=== PATIENT | female | born 1935 | race Caucasian/White ===

== ENCOUNTER 2016-11-11 17:45 | Emergency (ER) | payer MEDICARE ==
--- NOTE | 2016-11-11 18:52 | Emergency Department Report ---
ED General Adult HPI - General Chief complaint: Extremity Injury, Upper Stated complaint: FALL,POSSIBLE AMS Source: family, EMS (ems notes not available at time of chart dictation), RN notes reviewed Mode of arrival: Stretcher Limitations: Altered Mental Status (patient is demented. Patient is a poor historian) - History of Present Illness Initial comments: This is an 81-year-old female. She is previously unknown to me. She has a past medical history of hypertension, hypothyroidism, GERD/reflux, dementia, traumatic intracranial hemorrhage. History is obtained by speaking to her son, who is also a physician. Her son contacted me, and reported that the patient had a mechanical fall yesterday, and further reported that the patient cognitively seen to be at 90%. He reports that today the patient's cognition seems to be somewhat worse, although there are no exacerbating or relieving factors. Me, the patient denies headache, neck pain, chest pain, abdominal pain and shortness of breath. She denies irritative obstructive urinary symptoms, she complains of left-sided shoulder pain, patient's family endorses that the patient did complain of hip pain at some point. The patient is demented, and is unable to explain exacerbating or relieving factors. She is pleasant, cooperative, calm, and is requesting a back massage. -: unknown Location: left, upper extremity Improves with: other (per hpi) Worsens with: other (per hpi) Associated Symptoms: confusion (demented) - Related Data Previous Rx's Medication Instructions Recorded Last Taken Type Magnesium Oxide [Magnesium] 500 mg PO QDAY #14 capsule 11/11/16 Unknown Rx Potassium Chloride 20 meq PO BID #28 packet 11/11/16 Unknown Rx Allergies Allergy/AdvReac Type Severity Reaction Status Date / Time morphine Allergy Unknown Verified 11/11/16 18:52 Penicillins Allergy Unknown Verified 11/11/16 18:51 streptomycin Allergy Unknown Verified 11/11/16 18:50 ED Review of Systems ROS: Stated complaint: FALL,POSSIBLE AMS Other details as noted in HPI Comment: Unobtainable due to pts medical conditions Constitutional: denies: fever Eyes: denies: eye discharge ENT: denies: epistaxis Respiratory: denies: cough Cardiovascular: denies: chest pain Gastrointestinal: denies: abdominal pain Musculoskeletal: arthralgia, myalgia Neurological: confusion ED Past Medical Hx - Past Medical History Previous Medical History?: Yes Hx Hypertension: Yes Hx Dementia: Yes Additional medical history: traumatic hemorrhage of the cerebrum, repeated falls , rhabdomyolysis, right wrist sprain, osteoarthritis, GERD, A Fib - Surgical History Additional Surgical History: bilateral knee surgery - Social History Smoking Status: Never Smoker Substance Use Type: None - Medications Home Medications: Home Medications Medication Instructions Recorded Confirmed Last Taken Type Magnesium Oxide [Magnesium] 500 mg PO QDAY #14 capsule 11/11/16 Unknown Rx Potassium Chloride 20 meq PO BID #28 packet 11/11/16 Unknown Rx ED Physical Exam - General Limitations: Other (demented poor historian) General appearance: alert, in no apparent distress - Head Head exam: Present: atraumatic, normocephalic - Eye Eye exam: Present: normal appearance, PERRL, EOMI. Absent: nystagmus (b/l arcus senilis) - ENT ENT exam: Present: normal exam, normal orophraynx, mucous membranes moist, normal external ear exam - Neck Neck exam: Present: normal inspection, full ROM. Absent: tenderness, meningismus - Respiratory Respiratory exam: Present: normal lung sounds bilaterally. Absent: respiratory distress, wheezes, rales, rhonchi, stridor, chest wall tenderness, accessory muscle use, decreased breath sounds, prolonged expiratory - Cardiovascular Cardiovascular Exam: Present: regular rate, normal rhythm, normal heart sounds. Absent: bradycardia, tachycardia, irregular rhythm, systolic murmur, diastolic murmur, rubs, gallop - GI/Abdominal GI/Abdominal exam: Present: soft, normal bowel sounds. Absent: distended, tenderness, guarding, rebound, rigid, pulsatile mass - Extremities Exam Extremities exam: Present: normal inspection, full ROM, normal capillary refill , other (2+ pulses are noted in the bilateral upper and lower extremities. The compartments are soft. The pelvis is stable. Left shoulder is tender. 5 out of 5 strength in bilateral upper and lower extremities). Absent: pedal edema, joint swelling, calf tenderness - Back Exam Back exam: Present: normal inspection, full ROM. Absent: tenderness, CVA tenderness (R), paraspinal tenderness, vertebral tenderness - Neurological Exam Neurological exam: Present: alert, other (Extraocular movements intact. Tongue midline. No facial droop. Facial sensation intact to light touch in the V1, V2 , V3 distribution bilaterally. 5 and 5 strength in 4 extremities.. Sensation is intact to light touch in 4 extremities.). Absent: motor sensory deficit - Skin Skin exam: Present: warm, dry, intact, normal color. Absent: rash ED Course Vital Signs 11/11/16 11/11/16 11/11/16 18:27 19:13 19:15 Temperature 97.5 F L 98 F Pulse Rate 80 74 Respiratory 12 18 20 Rate Blood Pressure 147/52 Blood Pressure 117/51 [Left] O2 Sat by Pulse 99 99 Oximetry 11/11/16 20:51 Temperature 98 F Pulse Rate 100 H Respiratory 18 Rate Blood Pressure Blood Pressure 119/59 [Left] O2 Sat by Pulse 97 Oximetry - Reevaluation(s) Reevaluation #1: 11/11/16 19:19 Differential diagnosis: Intracranial injury, cervical spine injury, fracture, dislocation, arthritis, pneumonia, DJD, uti electrolyte derangement Assessment and plan: 81-year-old female who is pleasantly demented, with probable concussion. She is afebrile with reassuring vital signs. Noncontrast CT scan of the brain and cervical spine negative for acute disease. Laboratory studies, urinalysis, x-ray of the shoulder and pelvis pending. Reevaluation #2: 11/11/16 21:[address] scan of the brain and cervical spine negative for traumatic disease. X-ray of the chest negative for pneumonia. Left shoulder x-ray corroborates this. Hip x-ray negative for fracture and dislocation. Urinalysis negative. Laboratory studies demonstrate hypokalemia, hypomagnesemia. The patient will be started on potassium, magnesium, and calcium supplementation. She can follow-up with her outpatient primary care doctor for these further. Vital signs have remained stable. Left upper extremity will be placed in a sling. These findings and care were discussed with the patient's family and her son who lives in [place], who reports that he is a physician. They verbalized understanding, and the patient will be discharged at this time. 11/11/16 21:38 Reevaluation #3: 11/12/16 01:13 bilateral shoulder x-rays negative for fracture/dislocation. DJD /arthritis noted in the left-sided x-ray. ED Medical Decision Making - Lab Data Result diagrams: 11/11/16 19:12 11/11/16 19:12 Vital Signs (72 hours) 11/11/16 11/11/16 11/11/16 18:27 19:13 19:15 Temperature 97.5 F L 98 F Pulse Rate 80 74 Respiratory 12 18 20 Rate Blood Pressure 147/52 Blood Pressure 117/51 [Left] O2 Sat by Pulse 99 99 Oximetry Critical care attestation.: If time is entered above; I have spent that time in minutes in the direct care of this critically ill patient, excluding procedure time. ED Disposition Clinical Impression: Hypokalemia, Hypomagnesemia, Left shoulder pain Disposition: DC/TX-70 ANOTHER TYPE [facility] Is pt being admited?: No Does the pt Need Aspirin: No Condition: Good Additional Instructions: Take the potassium and magnesium supplementation as directed. Follow up with the primary care doctor within 7-10 days for repeat testing of potassium and magnesium levels. Keep the shoulder sling in place. Physical activities as tolerated. Follow-up with an orthopedic surgeon within the next week. Return to the ER right away with fevers, chills, chest pain, shortness of breath, intractable nausea or vomiting, confusion, inability to tolerate liquid feeds. Prescriptions: Magnesium Oxide [Magnesium] 500 mg PO QDAY #14 capsule Potassium Chloride 20 meq PO BID #28 packet Referrals: VIKTOR PATEL MD [Primary Care Provider] - 3-5 Days PRIMITIVO DAMICO MD [Staff Physician] - 3-5 Days
[2016-11-11 19:28] LABS: Basophils % (Auto) 0.7 % (0.0-1.8); Eosinophils % (Auto) 4.9 % (0.0-4.3); Hemoglobin 11.4 gm/dl (10.1-14.3); Mean Corpuscular HGB Conc 35 % (30-34); Mean Corpuscular Hemoglobin 32 pg (28-32); Mean Corpuscular Volume 94 fl (79-97); Platelet Count 274 K/mm3 (140-440); Red Blood Count 3.52 M/mm3 (3.65-5.03); Red Cell Distribution Width 14.3 % (13.2-15.2); White Blood Count 8.2 K/mm3 (4.5-11.0)
[2016-11-11 19:36] LABS: Mucus,Urine FEW /HPF
--- NOTE | 2016-11-11 19:36 | Cat Scan Report ---
FINAL REPORT EXAM: CT HEAD/BRAIN WO CON HISTORY: Trauma TECHNIQUE: Standard unenhanced CT of the head at 5.0 millimeter axial increments. PRIORS: None. FINDINGS: The ventricular system is normal in size and configuration. There is moderate cerebral atrophy and mild cerebellar atrophy. Low-density in the periventricular white matter bilaterally is consistent with small vessel ischemic changes. There is no evidence for mass lesion, mass effect, midline shift, acute intracranial hemorrhage, or acute ischemia/ infarction. No evidence for acute skull fracture is seen. No abnormality in the overlying scalp soft tissues is seen. Visualized paranasal sinuses demonstrates opacification of several right ethmoid air cells. IMPRESSION: No acute intracranial process noted. Cerebellum and cerebral atrophy and small vessel ischemic changes.
--- NOTE | 2016-11-11 19:42 | Cat Scan Report ---
FINAL REPORT EXAM: CT CERVICAL SPINE WO CON HISTORY: Trauma TECHNIQUE: Standard CT cervical spine obtained at 1.25 millimeter axial increments. Coronal and sagittal reconstruction was also performed. PRIORS: None. FINDINGS: The vertebral bodies are intact. There is no evidence for acute fracture. There is no evidence for paravertebral soft tissue swelling. There is severe degenerative disc narrowing from C3 through T1. Grade 1 anterolisthesis of C3 on C4, C4 on C5, C5 on C6, and C6 on C7 is noted, all of which are likely degenerative. Extensive hypertrophic facet joint degenerative changes are present bilaterally throughout the cervical spine. There is debris noted in the mid esophagus. IMPRESSION: 1. no acute abnormality of the cervical spine. 2. Severe degenerative disc changes from C3 through T1 with multilevel anterolisthesis from C3 through C7, likely degenerative 3. Extensive hypertrophic facet joint degenerative changes throughout 4. Incidental debris noted in the midesophagus.
[2016-11-11 19:48] LABS: Anion Gap 17 mmol/L; Blood Urea Nitrogen 14 mg/dL (7-17); Carbon Dioxide 30 mmol/L (22-30); Chloride 97.2 mmol/L (98-107); Creatine Kinase 56 units/L (30-135); Glucose 94 mg/dL (65-100); Sodium 141 mmol/L (137-145)
[2016-11-11 19:59] LABS: Potassium 2.7 mmol/L (3.6-5.0)
[2016-11-11 20:01] LABS: Bilirubin,Urine NEG (Negative); Blood,Urine NEG (Negative); Ketones,Urine NEG (Negative); Leukocyte Esterase,Urine NEG (Negative); Nitrite,Urine NEG (Negative)
[2016-11-11] MEDS ORDERED: MAG-OX PO ONE (20:07)
[2016-11-11] MEDS ORDERED: K-DUR PO ONE (20:07)
[2016-11-11 20:53] VITALS: BP 119/59
--- NOTE | 2016-11-11 21:02 | XRay Report ---
FINAL REPORT EXAM: XR CHEST 1V AP HISTORY: Trauma . status post fall in the senior care TECHNIQUE: AP portable view of the chest PRIORS: None. FINDINGS: Lines, tubes, and devices: N/A Lungs and pleura: Trachea is normal in position. Lungs are clear of infiltrate, pleural effusion, vascular congestion, or pneumothorax. Cardiomediastinal silhouette: Cardiac and mediastinal silhouettes are unremarkable. Other: Bony structures demonstrate mild degenerative joint space narrowing of the left glenohumeral joint. IMPRESSION: No acute cardiopulmonary process seen.
--- NOTE | 2016-11-11 21:05 | XRay Report ---
FINAL REPORT EXAM: XR SHOULDER 2+V LT HISTORY: Trauma status post fall at longterm with left shoulder pain TECHNIQUE: AP, Y, and oblique views of the left shoulder PRIORS: None. FINDINGS: There is no evidence of acute fracture or dislocation. The bony mineralization is normal. Soft tissues are unremarkable. There is significant spurring off the superior aspect of the acromioclavicular joint. Moderate narrowing of the glenohumeral joint is seen with spurring inferiorly. These findings are likely related to degenerative arthritis. IMPRESSION: No acute abnormality identified in the left shoulder. Arthritis in AC joint and glenohumeral joint.
--- NOTE | 2016-11-11 21:51 | XRay Report ---
FINAL REPORT PROCEDURE: XR HIP 2-3V LT TECHNIQUE: AP view of the pelvis and lateral views of the left hip were obtained. HISTORY: hip pain COMPARISON: No prior studies are available for comparison. FINDINGS: Unfortunately, left femoral neck is not well evaluated on these images due to internal rotation on the frontal view and difficulty penetrating the patient on the cross-table lateral view. Further evaluation with CT of the pelvis is recommended, as a femoral neck fracture is not excluded. No dislocation is seen. No widening of the symphysis pubis or SI joints is seen. IMPRESSION: There is slight irregularity of the left femoral neck which is not well seen on these images. Further evaluation with pelvic CT is recommended.
--- NOTE | 2016-11-11 22:05 | XRay Report ---
FINAL REPORT EXAM: XR SHOULDER 2+V RT HISTORY: comparison view to lt shoulder TECHNIQUE: AP, Y, and oblique views of the right shoulder PRIORS: Left shoulder x-rays 11/11/2016 FINDINGS: There is no evidence of acute fracture or dislocation. Mild narrowing of the glenohumeral joint is seen. The bony mineralization is normal. Soft tissues demonstrate numerous punctate skin calcifications. IMPRESSION: No acute abnormality identified in the right shoulder.
[2016-11-11] MEDS ORDERED: TYLENOL ONE (22:33)
[2016-11-11] MEDS ORDERED: TYLENOL PO ONE (22:41)
== END 2016-11-11 20:55 | disposition other institution (70) ==
LOC: ED 17:45
DX: E87.6 Hypokalemia (principal); E83.42 Hypomagnesemia; M25.512 Pain in left shoulder; I10 Essential (primary) hypertension; F03.90 Unspecified dementia, unspecified severity, without behavioral disturbance, psychotic disturbance, mood disturbance, and anxiety; M19.90 Unspecified osteoarthritis, unspecified site; K21.9 Gastro-esophageal reflux disease without esophagitis; Z88.0 Allergy status to penicillin; Z88.1 Allergy status to other antibiotic agents; Z88.6 Allergy status to analgesic agent
CPT/HCPCS: 36415; 70450; 71010; 72125; 80048; 81001; 82550; 83735; 85025; 87086

== ENCOUNTER 2016-11-12 21:30 | Inpatient (IN) | payer MEDICARE ==
--- NOTE | 2016-11-12 23:49 | Emergency Department Report ---
HPI - General Chief Complaint: Fall Time Seen by Provider: 11/12/16 23:31 - HPI HPI: Room 8 The patient is an 81-year-old female sent from [facility] after reportedly having an unwitnessed fall. There is a small subcutaneous laceration noticed the right orbital region. The patient has a history of dementia and is a poor historian. The [facility] reports the patient was found lying on the floor this evening. The patient reportedly stated she did not remember what happened. It is uncertain if the patient simply fell or lost consciousness. care home states they do not have any power of funnel coater paperwork to send to the hospital at this time. Location: [see above] Duration: Tonight/unwitnessed Quality: Unknown Severity: Mild Modifying factors: [see above] Context: [see above] Mode of transportation: [not driving] ED Past Medical Hx - Past Medical History Hx Hypertension: Yes Hx Dementia: Yes Additional medical history: traumatic hemorrhage of the cerebrum, repeated falls , rhabdomyolysis, right wrist sprain, osteoarthritis, GERD, A Fib - Surgical History Additional Surgical History: bilateral knee surgery - Family History Family history: no significant - Social History Smoking Status: Unknown if ever smoked Substance Use Type: None - Medications Home Medications: Home Medications Medication Instructions Recorded Confirmed Last Taken Type Magnesium Oxide [Magnesium] 500 mg PO QDAY #14 capsule 11/11/16 Unknown Rx Potassium Chloride 20 meq PO BID #28 packet 11/11/16 Unknown Rx ED Review of Systems ROS: Stated complaint: HEAD LACERATION Other details as noted in HPI Comment: Unobtainable due to pts medical conditions Physical Exam - Physical Exam Vital Signs: Vital Signs 11/12/16 22:17 Temperature 97.6 F Pulse Rate 80 Blood Pressure 142/60 O2 Sat by Pulse 95 Oximetry Physical Exam: GENERAL: The patient is well-developed well-nourished female lying on stretcher pleasantly demented. [] HEENT: Normocephalic. Dried blood at site of right periorbital injury. Extraocular motions are intact. Patient has moist mucous membranes. NECK: Supple. Trachea midline CHEST/LUNGS: Clear to auscultation. There is no respiratory distress noted. HEART/CARDIOVASCULAR: Regular. There is no tachycardia. There is no gallop rub or murmur. ABDOMEN: Abdomen is soft, nontender. Patient has normal bowel sounds. There is no abdominal distention. SKIN: There is an approximately 1 cm region of dried blood to the right periorbital region. There is no edema. There is no diaphoresis. NEURO: The patient is awake and alert. The patient is cooperative. The patient has no focal neurologic deficits. The patient has normal speech. 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 Moves all extremities well. Normal sensation MUSCULOSKELETAL: There is no limitation range of motion. ED Course Vital Signs 11/12/16 22:17 Temperature 97.6 F Pulse Rate 80 Blood Pressure 142/60 O2 Sat by Pulse 95 Oximetry ED Medical Decision Making - Lab Data Laboratory Tests 11/12/16 11/12/16 23:40 23:40 WBC 8.4 RBC 3.32 L Hgb 10.8 Hct 31.4 MCV 95 MCH 33 H MCHC 35 H RDW 14.4 Plt Count 250 Lymph % (Auto) 26.3 Carbon % (Auto) 8.6 H Eos % (Auto) 4.2 Baso % (Auto) 0.6 Lymph # 2.2 Carbon # 0.7 Eos # 0.3 Baso # 0.1 Seg Neutrophils % 60.3 Seg Neutrophils # 5.0 Sodium 143 Potassium 2.6 L* Chloride 100.6 Carbon Dioxide 28 Anion Gap 17 BUN 9 Creatinine 0.4 L Estimated GFR > 60 BUN/Creatinine Ratio 22.50 Glucose 119 H Calcium 8.0 L Magnesium 1.10 L Total Bilirubin 0.20 ALT 9 Alkaline Phosphatase 89 Total Creatine Kinase 79 CK-MB (CK-2) 4.5 H CK-MB (CK-2) Rel Index 5.6 H Troponin T 0.017 Total Protein 5.6 L Albumin 2.6 L Albumin/Globulin Ratio 0.9 - EKG Data -: EKG Interpreted by [facility] EKG shows normal: sinus rhythm Rate: normal - EKG Data When compared to previous EKG there are: previous EKG unavailable Interpretation: other (left bundle branch block) - Radiology Data Radiology results: report reviewed (CT head, CT cervical spine), image reviewed (CT head, CT cervical spine) CT head (read by radiologist)-no evidence of acute intracranial process. I'll atrophy and periventricular deep white matter changes CT cervical spine (read by radiologist)-no acute fracture or dislocation of the cervical spine. Significant cervical spondylosis and degenerative disc changes from the C2-3 through C7-T1 levels. There remains multilevel anterior stasis from C3 through C7 which is unchanged. - Differential Diagnosis ICH, closed head injury, cervical fracture, rhabdomyolysis Critical care attestation.: If time is entered above; I have spent that time in minutes in the direct care of this critically ill patient, excluding procedure time. ED Disposition Clinical Impression: Hypokalemia, Hypomagnesemia, Unwitnessed fall, Closed head injury Disposition: OP ADMIT IP TO THIS HOSP Is pt being admited?: Yes Does the pt Need Aspirin: Yes Condition: Fair Referrals: PRIMARY CARE,MD [Primary Care Provider] - 3-5 Days Time of Disposition: 01:30 (hospitalist paged)
[2016-11-13 00:07] LABS: Basophils % (Auto) 0.6 % (0.0-1.8); Eosinophils % (Auto) 4.2 % (0.0-4.3); Hematocrit 31.4 % (30.3-42.9); Hemoglobin 10.8 gm/dl (10.1-14.3); Mean Corpuscular HGB Conc 35 % (30-34); Mean Corpuscular Hemoglobin 33 pg (28-32); Mean Corpuscular Volume 95 fl (79-97); Platelet Count 250 K/mm3 (140-440); Red Blood Count 3.32 M/mm3 (3.65-5.03); Red Cell Distribution Width 14.4 % (13.2-15.2); White Blood Count 8.4 K/mm3 (4.5-11.0)
[2016-11-13 00:29] LABS: Creatine Kinase MB 4.5 ng/mL (0.0-4.0)
[2016-11-13 00:30] LABS: Alanine Aminotransferase 9 units/L (7-56); Albumin 2.6 g/dL (3.9-5); Albumin/Globulin Ratio 0.9 %; Alkaline Phosphatase 89 units/L (35-129); Blood Urea Nitrogen 9 mg/dL (7-17); Carbon Dioxide 28 mmol/L (22-30); Chloride 100.6 mmol/L (98-107); Creatine Kinase 79 units/L (30-135); Glucose 119 mg/dL (65-100); Sodium 143 mmol/L (137-145); Total Protein 5.6 g/dL (6.3-8.2)
--- NOTE | 2016-11-13 00:37 | Cat Scan Report ---
FINAL REPORT PROCEDURE: CT HEAD/BRAIN WO CON TECHNIQUE: Computerized tomography of the head was performed without contrast material. HISTORY: head injury after fall COMPARISON: 11/11/2016 FINDINGS: Skull and scalp: Normal. Paranasal sinuses: Mild opacification of the ethmoid sinuses. Ventricles and subarachnoid spaces: Normal. Cerebrum: No evidence of acute intracranial hemorrhage, hematoma or infarction. No masses are identified. Mild atrophy and periventricular deep white matter changes.. Cerebellum and brainstem: No evidence of hemorrhage, acute infarction or mass. Vasculature: Normal. Comments: None. IMPRESSION: No evidence of an acute intracranial process. Mild atrophy and periventricular deep white matter changes.
--- NOTE | 2016-11-13 00:39 | Cat Scan Report ---
FINAL REPORT PROCEDURE: CT CERVICAL SPINE WO CON TECHNIQUE: Computerized tomography of the cervical spine was performed from the skull base to T1 without contrast material. HISTORY: head injury after fall COMPARISON: 11/11/2016 FINDINGS: No acute fracture or dislocation of the cervical spine. There is loss of disc space height at all levels. Moderate spur formation off the vertebral bodies and the facets is identified at all levels. There remains multilevel anterior listhesis from the C3 through C7. This is consistent with degenerative changes in these regions. This has not changed since prior study. The visualized airway is patent. The AP spinal canal is adequate. IMPRESSION: No acute fracture or dislocation of the cervical spine. Significant cervical spondylosis and degenerative disc changes from the C2-3 through C7-T1 levels. There remains multilevel anterior listhesis from C3 through C7 which is unchanged..
[2016-11-13 00:48] LABS: Anion Gap 17 mmol/L; Potassium 2.6 mmol/L (3.6-5.0)
[2016-11-13] MEDS ORDERED: K-DUR PO ONE ×3 (01:12→16:02)
[2016-11-13] MEDS ORDERED: MAGNESIUM SULFATE 2GM/50ML 2 GM/50 ML BAG IV ONE ×2 (01:12→02:13)
[2016-11-13] MEDS ORDERED: NACL 0.9% 500 ML 500 ML ONE (01:50)
--- NOTE | 2016-11-13 01:52 | History and Physical Report ---
History of Present Illness Date of examination: 11/13/16 Chief complaint: AMS History of present illness: Patient is a 81-year-old woman from [facility] group home with history of advanced dementia, depression, hypothyroidism, seizure disorder on Keppra, atrial fibrillation not on anticoagulation due to recurrent repeated falls, hypertension, GERD and intracranial hemorrhage after fall who presents to [facility] ED for the second consecutive day after mechanical fall. Yesterday she was found to be hypokalemic and hypomagnesemic which was replaced and she was sent back to group home. Patient was found on floor by [facility] staff today. Patient gives no history due to dementia. She has a son who is a doctor in [place], Dr. Gatica [phone]. Past medical history: Dementia, hypothyroidism, A. fib, repeated falls Past surgical history, unknown Social history: Unknown due to dementia Family history: Unknown due to dementia Review of system: Unable to obtain due to dementia Medications and Allergies Allergies Allergy/AdvReac Type Severity Reaction Status Date / Time morphine Allergy Unknown Verified 11/11/16 18:52 Penicillins Allergy Unknown Verified 11/11/16 18:51 streptomycin Allergy Unknown Verified 11/11/16 18:50 Home Medications Medication Instructions Recorded Confirmed Last Taken Type Magnesium Oxide [Magnesium] 500 mg PO QDAY #14 capsule 11/11/16 Unknown Rx Potassium Chloride 20 meq PO BID #28 packet 11/11/16 Unknown Rx Active Meds: Active Medications Potassium Chloride (Kcl 10meq/100ml) 10 meq in 100 mls @ 100 mls/hr IV Q1H ALEXIA Stop: 11/13/16 05:59 Exam - Physical Exam Narrative exam: GEN: Chronically debilitated, well-developed well-nourished NAD, AWAKE, ALERT, ORIENTATED x 1 HEENT: NCAT, PERRL, EOMI, OP CLEAR NECK: SUPPLE, NO THYROMEGALY, NO JVD, NO LAD CVS: RRR, NORMAL S1S2 LUNGS/CHEST: CTA B, NORMAL CHEST EXPANSION B, GOOD AIR ENTRY B ABD: SOFT, NTND, GBS, NO REBOUND OR GUARDING EXT/SKIN: NO SIGNIFICANT EDEMA OR RASH MSK: FROM X 4 EXTREMITIES NEURO: CN 2-12 GROSSLY INTACT, NO new FOCAL DEFICITS PSY: CALM but confused - Constitutional Vitals: Temp Pulse Resp BP Pulse Ox 97.6 F 80 18 142/60 95 11/12/16 22:17 11/12/16 22:17 11/13/16 00:08 11/12/16 22:17 11/12/16 22:17 Results - Labs CBC & Chem 7: 11/12/16 23:40 11/12/16 23:40 Labs: Abnormal lab results 11/12/16 11/12/16 Range/Units 23:40 23:40 RBC 3.32 L (3.65-5.03) M/mm3 MCH 33 H (28-32) pg MCHC 35 H (30-34) % [place] % (Auto) 8.6 H (0.0-7.3) % Potassium 2.6 L* (3.6-5.0) mmol/L Creatinine 0.4 L (0.7-1.2) mg/dL Glucose 119 H (65-100) mg/dL Calcium 8.0 L (8.4-10.2) mg/dL Magnesium 1.10 L (1.7-2.3) mg/dL CK-MB (CK-2) 4.5 H (0.0-4.0) ng/mL CK-MB (CK-2) Rel Index 5.6 H (0-4) Total Protein 5.6 L (6.3-8.2) g/dL Albumin 2.6 L (3.9-5) g/dL Assessment and Plan Patient is a 81-year-old woman from [facility] group home with history of advanced dementia, depression, hypothyroidism, rhabdo, seizure disorder on Keppra (per group home records), atrial fibrillation not on anticoagulation due to recurrent repeated falls, hypertension, GERD and intracranial hemorrhage about 2 months ago at [facility] ED transferred to [facility] after fall who presents to [facility] ED for the second consecutive day after mechanical fall. Yesterday she was found to be hypokalemic and hypomagnesemic which was replaced and she was sent back to group home. Patient was found on floor by [facility] staff today. Patient gives no history due to dementia. She has a son who is a doctor in [place], Dr. Gatica [phone] (Urology Oncologist in [place], [place]). EKG shows normal sinus rhythm (not in afib) 73, left branch block, no prior EKG to compare with, prior to yesterday patient has no other records in our electronic medical records. PCP, Dr. Mustafa. Her Pcp before [facility] was Dr. Rocco Durán. I spoke with son, Dr. Gatica, she was living at home then fell, (on the floor at home for awhile, developed rehabdo, found by son-n-law) she initially went to [facility] ED but transferred to [facility] with ICH, August 2016 then she went to [facility] SN[facility] -Mechanical fall: Start vitamin D therapy, consult PT -Acute metabolic encephalopathy due to electrolyte imbalances -Severe hypokalemia: Replace magnesium first -LBBB on EKG without comparison, ?new or old: get CE/troponin, consult Cardiology -Severe hypomagnesemiia: Aggressive treatment -DVT prophylaxis: SCD, due to recent ICH
[2016-11-13] MEDS: KCL 10MEQ/100ML 10 MEQ/100 ML BAG IV SCH ×4 (02:00→10:43)
[2016-11-13] MEDS ORDERED: POTASSIUM CHLORIDE PO ONE (02:13)
[2016-11-13] MEDS ORDERED: ZOFRAN IV PRN (02:13)
[2016-11-13] MEDS ORDERED: TYLENOL PO PRN (02:13)
[2016-11-13] MEDS ORDERED: NACL 0.9% 500 ML 500 ML IV ONE (05:25)
[2016-11-13 05:36] LABS: Creatine Kinase MB 4.9 ng/mL (0.0-4.0)
[2016-11-13] MEDS: VITAMIN D3 PO SCH (09:30)
--- NOTE | 2016-11-13 11:58 | Progress Note ---
Assessment and Plan Assessment and plan: Recurrent falls. PT consult pending. Check MRI. Acute metabolic encephalopathy. Resolving. Severe hypokalemia. Replete potassium LBBB. Cardiology consult pending Severe hypomagnesemiia. Replete Magnesium DVT prophylaxis. SCD, due to recent ICH History Interval history: No new issues overnight. Hospitalist Physical - Constitutional Vitals: Temp Pulse Resp BP Pulse Ox 97.8 F 75 18 116/43 96 11/13/16 04:23 11/13/16 04:41 11/13/16 04:41 11/13/16 04:23 11/13/16 04:41 General appearance: Present: no acute distress, well-nourished - EENT Eyes: Present: PERRL, EOM intact ENT: hearing intact, clear oral mucosa, dentition normal - Neck Neck: Present: supple, normal ROM - Respiratory Respiratory effort: normal Respiratory: bilateral: CTA - Cardiovascular Rhythm: regular Heart Sounds: Present: S1 & S2. Absent: gallop, rub - Extremities Extremities: no ischemia, No edema, Full ROM - Abdominal General gastrointestinal: soft, non-tender, non-distended, normal bowel sounds - Integumentary Integumentary: Present: clear, warm, dry - Neurologic Neurologic: CNII-XII intact, moves all extremities Results - Labs CBC & Chem 7: 11/12/16 23:40 11/12/16 23:40 Labs: Laboratory Last Values WBC 8.4 K/mm3 (4.5-11.0) 11/12/16 23:40 RBC 3.32 M/mm3 (3.65-5.03) L 11/12/16 23:40 Hgb 10.8 gm/dl (10.1-14.3) 11/12/16 23:40 Hct 31.4 % (30.3-42.9) 11/12/16 23:40 MCV 95 fl (79-97) 11/12/16 23:40 MCH 33 pg (28-32) H 11/12/16 23:40 MCHC 35 % (30-34) H 11/12/16 23:40 RDW 14.4 % (13.2-15.2) 11/12/16 23:40 Plt Count 250 K/mm3 (140-440) 11/12/16 23:40 Lymph % (Auto) 26.3 % (13.4-35.0) 11/12/16 23:40 [place] % (Auto) 8.6 % (0.0-7.3) H 11/12/16 23:40 Eos % (Auto) 4.2 % (0.0-4.3) 11/12/16 23:40 Baso % (Auto) 0.6 % (0.0-1.8) 11/12/16 23:40 Lymph # 2.2 K/mm3 (1.2-5.4) 11/12/16 23:40 [place] # 0.7 K/mm3 (0.0-0.8) 11/12/16 23:40 Eos # 0.3 K/mm3 (0.0-0.4) 11/12/16 23:40 Baso # 0.1 K/mm3 (0.0-0.1) 11/12/16 23:40 Seg Neutrophils % 60.3 % (40.0-70.0) 11/12/16 23:40 Seg Neutrophils # 5.0 K/mm3 (1.8-7.7) 11/12/16 23:40 Sodium 143 mmol/L (137-145) 11/12/16 23:40 Potassium 2.6 mmol/L (3.6-5.0) L* 11/12/16 23:40 Chloride 100.6 mmol/L (98-107) 11/12/16 23:40 Carbon Dioxide 28 mmol/L (22-30) 11/12/16 23:40 Anion Gap 17 mmol/L 11/12/16 23:40 BUN 9 mg/dL (7-17) 11/12/16 23:40 Creatinine 0.4 mg/dL (0.7-1.2) L 11/12/16 23:40 Estimated GFR > 60 ml/min 11/12/16 23:40 BUN/Creatinine Ratio 22.50 % 11/12/16 23:40 Glucose 119 mg/dL (65-100) H 11/12/16 23:40 Calcium 8.0 mg/dL (8.4-10.2) L 11/12/16 23:40 Magnesium 1.10 mg/dL (1.7-2.3) L 11/12/16 23:40 Total Bilirubin 0.20 mg/dL (0.1-1.2) 11/12/16 23:40 AST 24 units/L (5-40) 11/12/16 23:40 ALT 9 units/L (7-56) 11/12/16 23:40 Alkaline Phosphatase 89 units/L (35-129) 11/12/16 23:40 Total Creatine Kinase 90 units/L (30-135) 11/13/16 04:14 CK-MB (CK-2) 4.9 ng/mL (0.0-4.0) H 11/13/16 04:14 CK-MB (CK-2) Rel Index 5.4 (0-4) H 11/13/16 04:14 Troponin T 0.012 ng/mL (0.00-0.029) 11/13/16 04:14 Total Protein 5.6 g/dL (6.3-8.2) L 11/12/16 23:40 Albumin 2.6 g/dL (3.9-5) L 11/12/16 23:40 Albumin/Globulin Ratio 0.9 % 11/12/16 23:40
[2016-11-13 14:00] LABS: Creatine Kinase 66 units/L (30-135); Creatine Kinase MB 4.3 ng/mL (0.0-4.0)
--- NOTE | 2016-11-13 15:03 | Admit Criteria Form ---
Admission Criteria Documentation: GENERAL ADMISSION CRITERIA (Place 'X' for any and all applicable criteria): Admission is indicated for ANY ONE of the following: [ ]I. Hemodynamic instability as indicated by ANY ONE of the following(1)(2) (3)(4)(5): [ ]a) Vital sign abnormality not readily corrected by appropriate treatment within 12 to 24 hours indicated by ANY ONE of the following: [ ]i) Hypotension [ ]ii) Symptomatic Tachycardia unresponsive to treatment (eg , analgesia, fluids, sedation as indicated) [ ]iii) Orthostatic vital sign changes unresponsive to treatment (eg, fluids) [ ]b) Vital sign abnormality that is severe indicated by ANY ONE of the following: [ ]i) Inadequate perfusion indicated by ANY ONE of the following: [ ]1) Lactic acidosis (greater than 2 mmol/L) [ ]2) New abnormal capillary refill (greater than 3 seconds) [ ]3) Other metabolic acidosis (arterial pH less than 7.35) not otherwise explained [ ]4) Reduced urine output [ ]5) Altered mental status [ ]6) Myocardial Ischemia [ ]v) Mean arterial pressure[A] less than 60 mm Hg [ ]vi) Mean arterial pressure[A] less than 70 mm Hg after 30 minutes of appropriate treatment (eg, fluid resuscitation) [ ]vii) IV inotropic or vasopressor medication required to maintain adequate blood pressure or perfusion [ ]viii) Sustained heart rate greater than 120 beats per minute in adult or child 6 years or older[B]] [ ]II. Hypertension requiring inpatient treatment as indicated by ANY ONE of the following(6)(7)(8): [ ]a) SBP greater than 220 mm Hg or DBP greater than 120 mm Hg despite treatment [ ]b) SBP greater than 140 mm Hg or DBP greater than 100 mm Hg with evidence of acute end organ damage as indicated by ANY ONE of the following: [ ]i) Encephalopathy [ ]ii) Acute renal failure as indicated by new onset of ANY ONE of the following(9)(10)(11)(12)(13): [ ]1) A 3-fold rise in serum creatinine from baseline [ ]2) Serum creatinine greater than 4 mg/dL ( 354 micromoles/L) with acute rise greater than 0.5 mg/dL (44.2 micromoles/L) [ ]3) Reduction of more than 75% in estimated glomerular filtration rate from baseline [ ]4) Estimated glomerular filtration rate less than 35 mL/min/1.73m2 (0.59 mL/sec/1.73m2) in child up to 18 years of age [ ]5) Cessation of urine output indicated by ALL of the following: [ ]A. Adequate volume status [ ]B. Inadequate urine output as indicated by ANY ONE of the following: [ ]a. Urine output less than 0.3 mL/kg/hr for 24 hours [ ]b. Anuria (urine output less than 0.1 mL/kg/hr) for 12 hours [ ]iii) Aortic dissection [ ]iv) Myocardial ischemia [ ]v) Left ventricular heart failure [ ]vi) Retinal hemorrhage [ ]vii) Other significant finding [ ]c) Hypertension in child requiring inpatient treatment as indicated by ALL of the following(14)(15)(16): [ ]i) Outpatient treatment not effective, not available, or not appropriate [ ]ii) SBP or DBP greater than 95th percentile for age [ ]iii) Evidence of acute end organ damage as indicated by ANY ONE of the following: [ ]1) Altered mental status [ ]2) Acute renal failure as indicated by new onset of ANY ONE of the following(9)(10)(11)(12)(13): [ ]A. A 3-fold rise in serum creatinine from baseline [ ]B. Serum creatinine greater than 4 mg/dL (354 micromoles/L) with acute rise greater than 0.5 mg/dL (44.2 micromoles/L) [ ]C. Reduction of more than 75% in estimated glomerular filtration rate from baseline [ ]D. Estimated glomerular filtration rate less than 35 mL/min/1.73m2 (0.59 mL/sec/1.73m2)in child up to 18 years of age [ ]E. Cessation of urine output indicated by ALL of the following: [ ]a. Adequate volume status [ ]b. Inadequate urine output as indicated by ANY ONE of the following: [ ]1) Urine output less than 0.3 mL/kg/hr for 24 hours [ ]2) Anuria (urine output less than 0.1 mL/kg/hr) for 12 hours [ ]3) Severe headache [ ]4) Visual disturbance [ ]5) Retinal hemorrhage [ ]6) Other significant finding [ ]III. Acute cardiac or peripheral ischemia as indicated by ANY ONE of the following: [ ]a) Acute coronary syndrome(17)(18) [ ]b) Acute peripheral ischemia (eg, pulseless, cool, mottled, or cyanotic extremity)(19) [ ]IV. Cardiac arrhythmias or findings of immediate concern indicated by ANY ONE of the following(20)(21): [ ]a) Heart rhythms that are inherently dangerous or unstable indicated by ANY ONE of the following(22)(23)(24): [ ]i) Resuscitated ventricular fibrillation or cardiac arrest [ ]ii) Ventricular escape rhythm [ ]iii) Sustained ventricular tachycardia (30 seconds or more of ventricular rhythm at greater than 100 beats per minute) [ ]iv) Nonsustained ventricular tachycardia and ANY ONE of the following: [ ]1) Suspected cardiac ischemia as cause or consequence of ventricular tachycardia [ ]2) In setting of acute myocarditis [ ]b) Unstable cardiac conduction defects indicated by ANY ONE of the following(24)(25)(26): [ ]i) Type II second-degree atrioventricular block [ ]ii) Third-degree atrioventricular block [ ]iii) New-onset left bundle branch block with suspected myocardial ischemia [ ]c) Any heart rhythm and ANY ONE of the following(22)(23)(27)(28)( 29): [ ] i) Continuous long-term ECG monitoring needed (eg, initiation of drug requiring monitoring for more than 24 hours) [ ] ii) Patient has automatic implanted cardioverter defibrillator that is repeatedly firing, malfunctioning, or in need of immediate adjustment of settings beyond the scope of ambulatory or observation care. [ ]d) Heart rhythms of concern due to ANY ONE of the following: [ ]i) Hypotension [ ]ii) Respiratory distress [ ]iii) Association with other significant symptoms (eg, bradycardia with syncope or ongoing dizziness, supraventricular tachycardia with chest pain) (27)(28) (30) [ ] V. Severe heart failure as indicated by ANY ONE of the following ( 31)(32): [ ]a) Respiratory distress [ ]b) Hypotension [ ]c) Anasarca (refractory to outpatient therapy) [ ]d) Cardiac arrhythmias of immediate concern [ ]e) Myocardial ischemia [ ]. Respiratory abnormalities, including ANY ONE of the following(33)(34) (35)(36): [ ]a) Respiratory rate greater than 30 breaths per minute unresponsive to treatment [A] [ ]b) New saturation of arterial oxygen less than 90% [ ]c) New partial pressure of carbon dioxide greater than 44 mm Hg ( 5.9 kPa) [ ]d) Supplemental oxygen or respiratory treatments needed that are new or not performable at other levels of care [ ]e) New-onset cyanosis [ ]f) Inability to protect airway [ ]g) Chronic lung disease with severe deterioration (not responsive to emergency and observation care treatment as appropriate) as indicated by ANY ONE of the following(34)(36 ): [ ]i) SaO2 5% below baseline in patient with chronic hypoxemia [ ]ii) New requirement for supplemental oxygen to keep SaO2 at baseline or acceptable level [ ]iii) Required supplemental oxygen performable only in acute inpatient setting [ ]iv) Severe airflow or ventilation abnormalities [ ]v) Previously mobile patient unable to walk between rooms [ ]vi Inability to eat or sleep due to dyspnea [ ]vii) Rapid rate of exacerbation onset [ ]viii) Altered mental status ]VII. Severe airflow or ventilation abnormalities (not responsive to emergency and observation care treatment as appropriate) as indicated by ANY ONE of the following(33)(34)(35)(37): [ ]a) PCO2 greater than 42 mm Hg (5.6 kPa) and pH less than 7.35 (new ) [ ]b) Documented PCO2 increased more than 5 mm Hg (0.7 kPa) from disease baseline [ ]c) Airflow measurements [B] less than 60% of previous best or predicted (eg, peak expiratory flow rate less than 300 L/minute) despite intensive emergent treatment [C] [ ]d) Required respiratory treatments that are performable only in acute inpatient setting [ ]VIII. Impending or actual respiratory arrest ( Also use Respiratory Failure GRG for severe respiratory disease and long-term mechanical ventilation patients) [ ]IX. Neurologic abnormalities, including ANY ONE of the following: [ ]a) New findings that suggest ANY ONE of the following: [ ]i) [employer] infection(38) [ ]ii) Cerebral bleeding, ischemia, or vasospasm(39)(40) [ ]iii) Increased intracranial pressure, hydrocephalus, or cerebral edema(41)(42)(43) [ ]iv) Spinal cord injury(44) [ ]b) Uncontrolled seizures(45) [ ]c) New-onset coma (eg, [place] coma scale score less than 9) or unexplained abnormal mental status (eg, [place] coma scale score less than 14) [D](41)(46)(47) [ ]X. New-onset severe neurologic findings requiring inpatient care; examples include(42)(48)(49): [ ]a) Papilledema [ ]b) Cerebral edema [ ]c) Mass effect on CT scan [ ]XI. Suspected acute intra-abdominal process with peritoneal signs, abdominal mass, or similar findings (50)(51)(52) [ ]XII. Severe physiologic disorder remaining after emergency or observation level care (as appropriate) as indicated by ANY ONE of the following (53): [ ]a) Significant dehydration [ ]b) Diabetic ketoacidosis [ ]c) Hyperglycemic hyperosmolar state (eg, osmolality greater than 320 mOsm/kg (mmol/kg) [ ]d) Hypoglycemia [ ]e) Other (new) acid-base disorder with pH less than 7.35 or greater than 7.5(54) [ ]f) Thyroid storm (55) [ ]g) Myxedema coma (55) [ ]XIII. Abdominal abnormalities with ANY ONE of the following(56)(57): [ ]a) Absent bowel sounds with complete ileus [ ]b) Signs of intestinal obstruction or peritonitis [E] [ ]c) Nausea and vomiting that cannot be controlled with outpatient or observation care [ ]XIV. Acute renal failure as indicated by new onset of ANY ONE of the following(9)(10)(11)(12)(13): [ ]a) A 3-fold rise in serum creatinine from baseline [ ]b) Serum creatinine greater than 4 mg/dL (354 micromoles/L) with acute rise greater than 0.5 mg/dL (44.2 micromoles/L) [ ]c) Reduction of more than 75% in estimated glomerular filtration rate from baseline [ ]d) Estimated glomerular filtration rate less than 35 mL/min/ 1.73m2 (0.59 mL/sec/1.73m2) in child up to 18 years of age [ ]e) Cessation of urine output indicated by ALL of the following: [ ]i) Adequate volume status [ ]ii) Inadequate urine output as indicated by ANY ONE of the following: [ ]1) Urine output less than 0.3 mL/kg/hr for 24 hours [ ]2) Anuria (urine output less than 0.1 mL/kg/hr) for 12 hours [ ]XV. Significant uremic complications as indicated by ANY ONE of the following(58)(59)(60): [ ]a) Outpatient therapy is ineffective or not feasible for ANY ONE of the following: [ ]i) Severe heart failure [ ]ii) Severehypertension [ ]iii) Pleural effusion [ ]iv) Pericarditis or pericardial effusion [ ]b) Cardiac arrhythmias of immediate concern [ ]c) Intractable nausea or vomiting [ ]d) Recurrent seizures [ ]e) Encephalopathy [ ]f) Bleeding abnormalities (eg, platelet dysfunction) with active (eg, gastrointestinal) bleeding [ ]g) Dialysis indicated before long-term access or ambulatory arrangements can be made [ ]h) Significant metabolic or electrolyte abnormalities (eg, severe acidosis or hyperkalemia) [ ]XVI. High fever or other high-risk infection situation as indicated by ANY ONE of the following(61)(62)(63)(64): [ ]a) Outpatient and observation care antimicrobial treatment unavailable, not effective, or not appropriate [ ]b) Documented bacteremia [ ]c) Temperature greater than 40.5 degrees C (104.9 degrees F) ( oral) [ ]d) Temperature greater than 39.5 degrees C (103.1 degrees F) ( oral) or less than 36 degrees C (96.8 degrees F) (rectal) that does not respond to e treatment and observation care [ ] XVII. Temperature less than 95 degrees F (35 degrees C)(rectal)(65) [ ] XVIII. Severe nutritional abnormalities as indicated by ALL of the following (66)(67): [ ]a) Inability to tolerate or establish sufficient oral or other enteral nutrition in outpatient setting [ ]b) Parenteral nutrition regimen need that must be implemented on inpatient basis [X ] XIX. Severe electrolyte abnormalities indicated by ALL of the following(68 )(69)(70): [ X]a) Electrolytes and associated findings are not as expected for patient baseline or acceptable treatment effects. [X ]b) Severe abnormalities indicated by ANY ONE of the following: [ ]i) Sodium less than 130 mEq/L (mmol/L) (new) [ ]ii)Sodium less than 135 mEq/L (mmol/L) with ANY ONE of the following: [ ]1) Uncorrectable (to near normal or chronic baseline) after trial of outpatient and emergency treatment [ ]2) Altered mental status [ ]3) Seizures [ ]4) Severe medical etiology requiring inpatient management (eg, heart failure, hypovolemia) [ ]iii) Sodium greater than 155 mEq/L (mmol/L) [ ]iv) Sodium greater than 150 mEq/L (mmol/L) with ANY ONE of the following: [ ]1) Uncorrectable (to near normal or chronic baseline) with outpatient and emergency treatment [ ]2) Altered mental status [ ]3) Seizures [ ]4) Severe medical etiology (eg, hypovolemia, diabetes insipidus) [ ]v) Potassium less than 2.5 mEq/L (mmol/L) despite outpatient and emergency treatment [X ]vi) Potassium less than 3 mEq/L (mmol/L) with ANY ONE of the following: [ ]1) Weakness [ ]2) Cardiac abnormality (eg, arrhythmia, conduction disturbance) [ ]3) Cardiac ischemia [ ]4) Ileus [ ]5) Ongoing medical cause requiring inpatient management (eg, acute renal wasting or SIADH) [X ]6) Other severe symptoms [ ]vii) Potassium greater than 6.5 mEq/L (mmol/L) [ ]viii) Potassium greater than 5 mEq/L (mmol/L) with ANY ONE of the following: [ ]1) Uncorrectable (to near normal or chronic baseline) with outpatient and emergency treatment [ ]2) Severe ECG findings [F] [ ]3) Acute worsening of renal failure (creatinine greater than 2.5 mg/dL (221 micromoles/L) or significant elevation for age and size) [ ]4) Severe weakness [ ]5) Severe medical etiology (eg, hemolysis, infection, drug overdose) [ ]ix) Calcium less than 7 mg/dL (1.75 mmol/L) despite outpatient and emergency treatment (72) [ ]x) Calcium less than 8 mg/dL (2 mmol/L) with significant symptoms or findings; examples include(72): [ ]1) Altered mental status [ ]2) Muscle spasms [ ]3) Seizures [ ]4) Breathing difficulty [ ]5) Cardiac abnormality (eg, arrhythmia or conduction disturbance) [ ]xi) Calcium greater than 14 mg/dL (3.5 mmol/L)(72) [ ]xii) Calcium greater than 12 mg/dL (3 mmol/L) with ANY ONE of the following(72): [ ]1) Uncorrectable (to near normal or chronic baseline) with outpatient and emergency treatment [ ]2) Significant dehydration or hypovolemia as indicated by ALL of the following(70)(73)(74): [ ]A. Not resolved with initial treatments [ ]B. Clinically significant dehydration as indicated by ANY ONE of the following: [ ]a. Vomiting refractory to outpatient treatment (ie, precluding oral rehydration) [ ]b. Inability to drink [ ]c. Hypernatremia or other electrolyte abnormality unable to be corrected with outpatient and emergency treatment [ ]d. Failure to remain hydrated with outpatient therapy [ ]e. Reduced urine output [ ]f. Hypotension [ ]g. Serious cause for dehydration requiring acute hospitalization (eg, bowel obstruction, increased intracranial pressure, infectious cause) [ ]h. Child with ANY ONE of the following(75): [ ]1) Severe abdominal tenderness [ ]2) Adequate care not available at home [ ]3) Severe dehydration ( greater than 9% loss of body weight) [ ]4) Significant symptoms or findings; examples include: [ ]A. Altered mental status [ ]B. Cardiac abnormality (eg, arrhythmia, conduction disturbance) [ ]C. Malignant etiology requiring inpatient treatment [ ]xiii) Phosphorus less than 1 mg/dL (0.32 mmol/L) [ ]xiv) Phosphorus less than 1.5 mg/dL (0.48 mmol/L) with ANY ONE of the following: [ ]1) Patient unresponsive to outpatient and emergency treatment [ ]2) Significant symptoms or findings; examples include: [ ]A. Weakness [ ]B. Altered mental status [ ]C. Breathing difficulty [ ]D. Seizures [ ]E. Rhabdomyolysis [ ]xv) Phosphorus greater than 10 mg/dL (3.2 mmol/L) [ ]xvi) Phosphorus greater than 4.5 mg/dL (1.45 mmol/L) (new) with ANY ONE of the following: [ ]1) Severe medical etiology (eg, crush injury, acute renal failure) [ ]2) Associated hypocalcemia with significant findings; examples include: [ ]A. Neurologic symptoms [ ]B. Altered mental status [ ]C. Muscle spasms [ ]D. Seizures [ ]E. Breathing difficulty [ ]F. Cardiac abnormality (eg, arrhythmia, conduction disturbance) [ ]xvii) Magnesium less than 1 mg/dL (0.41 mmol/L) [ ]xviii) Magnesium less than 1.5 mg/dL (0.62 mmol/L) with ANY ONE of the following: [ ]1) Patient unresponsive to outpatient and emergency treatment [ ]2) Associated hypocalcemia with significant findings; examples include: [ ]A. Altered mental status [ ]B. Muscle spasms [ ]C. Seizures [ ]D. Breathing difficulty [ ]E. Cardiac abnormality (eg, arrhythmia , conduction disturbance) [ ]3) Associated hypokalemia (potassium less than 3 mEq/L (mmol/L)) with risk of arrhythmia [ ]xix) Magnesium greater than 4 mEq/L (2 mmol/L) [ ]xx) Magnesium greater than 2.5 mEq/L (1.25 mmol/L) with significant symptoms or findings; examples include: [ ]1) Weakness [ ]2) Altered mental status [ ]3) Cardiac abnormality (eg, arrhythmia, conduction disturbance) [ ]4) Breathing difficulty [ ]5) Severe medical etiology (eg, renal failure, hypovolemia) [ ]xxi) Uric acid greater than 20 mg/dL (1190 micromoles/L)(76) [ ]xxii) Uric acid greater than 8 mg/dL (476 micromoles/L) with significant symptoms or findings of tumor lysis syndrome; examples include(76): [ ]1) Creatinine greater than 1.5 times upper limit of normal [ ]2) Cardiac abnormality (eg, arrhythmia, conduction disturbance) [ ]3) Seizure [ ]XX. Acute blood loss causing significant abnormality as indicated by ANY ONE of the following(77)(78): [ ]a) Hemoglobin less than 10 g/dL (100 g/L) (not baseline) [ ]b) Hematocrit less than 30% (0.30) (not baseline) [ ]c) Repeat hematocrit decreased more than 2% (0.02) [ ]d) Uncontrolled bleeding [ ]XXI. Severe anemia indicated by ANY ONE of the following(78)(79): [ ]a) Altered mental status [ ]b) Chest pain [ ]c) Exertional dyspnea [ ]d) Syncope [ ]e) Other findings suggesting inadequate perfusion [ ]f) Treatment with transfusion or volume replacement is ineffective at resolving ANY ONE of the following [G]: [ ]i) Tachycardia for age [ ]ii) Orthostatic vital sign changes as indicated by ANY ONE of the following(80): [ ]1) Fall in SBP of 20 mm Hg or more 1 to 3 minutes after patient sits or stands from recumbent position [ ]2) Fall in DBP of 10 mm Hg or more 1 to 3 minutes after patient sits or stands from recumbent position [ ]XXII. High-risk low platelet count as indicated by ANY ONE of the following( 81)(82): [ ]a) Severe or life-threatening bleeding (eg, intracranial, major gastrointestinal, or extensive mucosal bleeding), with any reduced platelet count [ ]b) Platelet count less than 20,000/mm3 (20 x109/L) with any active bleeding [ ]c) Platelet count less than 10,000/mm3 (10 x109/L) with minor purpura or petechiae [ ]d) Platelet count less than 5000/mm3 (5 x109/L) [ ]e) Low platelet count with hemolytic anemia [ ]XXIII. Disseminated intravascular coagulation(77)(83) [ ]XXIV. Severe adverse drug or systemic toxin reaction requiring inpatient treatment; examples include(84)(85): [ ]a) Serotonin syndrome(86) [ ]b) Neuroleptic malignant syndrome(86) [ ]c) Cholinergic syndrome with severe symptoms (eg, bronchorrhea, weakness, mental status changes, seizures) [ ]d) Sympathetic syndrome with severe symptoms (eg, seizures, mental status changes, cardiac dysrhythmias) [ ]e) Anticholinergic syndrome [ ]XXV. Severe pain requiring acute inpatient management as indicated by ALL of the following (87)(88)(89): [ ]a) Continuous or frequent (eg, every 2 to 4 hours) parenteral analgesics required [H] [ ]b) Rapid improvement expected from treatment or acute intervention (eg, surgery, anesthesia procedure) [ ]XXVI.Severe behavioral health issues judged unmanageable at a lower level of care (eg, residential) in a patient who is ANY ONE of the following(91) [ ]a) Acutely suicidal [ ]b) A danger to self (eg, self-mutilating or suicidal behavior) [ ]c) A danger to others (eg, assaultive or homicidal behavior) [ ]d) Incapacitated because of grave disability (eg, inability to provide for self at lower level of care) (92) [ ]XXVII. Inpatient monitoring needed; examples include(1)(3)(87)(93)(94)(95)(96 ): [ ]a) Vital signs, neurologic signs, or vascular checks more frequently than every 4 hours [ ]b) Cardiac or respiratory monitoring beyond the scope (eg, over 24 hours) of observation care [ ]c) Pulmonary artery catheter monitoring [ ]d) Suspected compartment syndrome(97) (98) [ ]e) Cerebral bleeding, hydrocephalus, or vasospasm monitoring [ ]f) Increased intracranial pressure or cerebral edema monitoring [ ]g) monitoring [ ]XXVIII. Treatment requiring inpatient care; examples include: [ ]a) IV fluid to replace significant ongoing losses (greater than 3 L/m2 per day)(53) [ ]b) High concentration oxygen (greater than 40%)(33)(99)(100) [ ]c) Frequent respiratory therapy (more frequently than every 4 hours) to maintain airflow rates greater than 60% of baseline(33)(99)(100) [ ]d) Epidural analgesia(87) [ ]e) IV anticoagulation, vasoactive, or antiarrhythmic medication(19 )(23) [ ]f) Acute thrombolytics (generally require 24 hours of observation )(101)(102) [ ]XXIX. Emergency procedures needed; examples include: [ ]a) Emergency inpatient surgery [ ]b) Temporary pacemaker placement(103) [ ]c) Chest tube placement with active evacuation (eg, suction, drainage)(104) [ ]d) Emergent cardioversion(105) [ ]e) Emergent cardiac or vascular procedures (eg, cardiac catheterization, angioplasty) (17)(18) [ ]f) Emergent dialysis access placement and institution(10)(106) [ ]g) Emergent pericardiocentesis(107) [ ]h) Emergent plasmapheresis or leukapheresis(83) [ ]i) Emergent tracheostomy The original [employer] content created by [employer] has been revised. The portions of the content which have been revised are identified through the use of italic text or in bold, and [employer] has neither reviewed nor approved the modified material. All other unmodified content is copyright [employer]. Please see references footnoted in the original [employer] edition 2016 Admission Criteria Met: Yes
--- NOTE | 2016-11-13 15:27 | Consultation ---
History of Present Illness Consult date: 11/13/16 Consult reason: other (LBBB) History of present illness: This is an 81yr old long-term resident who was sent to the ED for evaluation of unwitnessed fall. Noted small laceration to left eyebrow. No acute intracranial process on head CT. Initial labs shows severe hypokalemia with a potassium of 2.6 and a low magnesium of 1.1. Her ECG shows a sinus rhythm with a left bundle branch block thus this cardiac consultation. There is no prior ECG for comparison. She denies chest pain and shortness of breath. History unobtainable due to underlying dementia. No family members present. Medications and Allergies Allergies Allergy/AdvReac Type Severity Reaction Status Date / Time morphine Allergy Unknown Verified 11/11/16 18:52 Penicillins Allergy Unknown Verified 11/11/16 18:51 streptomycin Allergy Unknown Verified 11/11/16 18:50 Home Medications Medication Instructions Recorded Confirmed Last Taken Type Magnesium Oxide [Magnesium] 500 mg PO QDAY #14 capsule 11/11/16 Unknown Rx Potassium Chloride 20 meq PO BID #28 packet 11/11/16 Unknown Rx Active Meds: Active Medications Acetaminophen (Tylenol) 650 mg PO Q6H PRN PRN Reason: Non Cardiac Pain or Temp>100.5 Cholecalciferol (Vitamin D3) 1,000 unit PO QDAY ALEXIA Last Admin: 11/13/16 09:30 Dose: 1,000 unit Ondansetron HCl (Zofran) 4 mg IV Q4H PRN PRN Reason: Nausea And Vomiting Potassium Chloride (K-Dur) 40 meq PO ONCE ONE Stop: 11/13/16 16:03 Physical Examination Vital Signs Temp Pulse BP Pulse Ox 97.6 F 80 142/60 95 11/12/16 22:17 11/12/16 22:17 11/12/16 22:17 11/12/16 22:17 General appearance: no acute distress HEENT: Positive: PERRL Neck: Positive: trachea midline Cardiac: Positive: Reg Rate and Rhythm Lungs: Positive: Decreased Breath Sounds Results 11/12/16 23:40 11/12/16 23:40 Cardiac Enzymes 11/13/16 11/13/16 Range/Units 04:14 13:21 CK-MB (CK-2) 4.9 H 4.3 H (0.0-4.0) ng/mL Assessment and Plan s/p unwitnessed Fall Hypokalemia Hypomagnesemia Dementia LBBB
[2016-11-13 18:17] LABS: Anion Gap 14 mmol/L; Blood Urea Nitrogen 7 mg/dL (7-17); Calcium 7.7 mg/dL (8.4-10.2); Carbon Dioxide 28 mmol/L (22-30); Chloride 104.8 mmol/L (98-107); Glucose 114 mg/dL (65-100); Potassium 4.2 mmol/L (3.6-5.0); Sodium 143 mmol/L (137-145)
[2016-11-14 04:59] LABS: Mean Corpuscular HGB Conc 33 % (30-34); Mean Corpuscular Hemoglobin 32 pg (28-32); Mean Corpuscular Volume 96 fl (79-97); Platelet Count 224 K/mm3 (140-440); Red Blood Count 3.11 M/mm3 (3.65-5.03); Red Cell Distribution Width 14.9 % (13.2-15.2); White Blood Count 6.9 K/mm3 (4.5-11.0)
[2016-11-14 05:16] LABS: Anion Gap 16 mmol/L; Blood Urea Nitrogen 8 mg/dL (7-17); Calcium 7.6 mg/dL (8.4-10.2); Carbon Dioxide 23 mmol/L (22-30); Chloride 107.5 mmol/L (98-107); Glucose 83 mg/dL (65-100); Potassium 4.4 mmol/L (3.6-5.0); Sodium 142 mmol/L (137-145)
[2016-11-14] MEDS ORDERED: COLACE PO PRN (07:39)
[2016-11-14] MEDS ORDERED: MILK OF MAGNESIA PO PRN (07:39)
--- NOTE | 2016-11-14 10:24 | Progress Note ---
Assessment and Plan Assessment and plan: Recurrent falls. PT evaluation. Consider MRI. Acute metabolic encephalopathy. Resolving. Severe hypokalemia. Replete potassium LBBB. Cardiology following. Severe hypomagnesemiia. Replete Magnesium DVT prophylaxis. SCD, due to recent ICH History Interval history: No new issues overnight. Hospitalist Physical - Constitutional Vitals: Temp Pulse Resp BP Pulse Ox 97.9 F 60 19 132/47 98 11/13/16 10:00 11/14/16 07:20 11/14/16 00:19 11/13/16 10:00 11/13/16 10:00 General appearance: Present: no acute distress - EENT Eyes: Present: PERRL, EOM intact ENT: hearing intact, clear oral mucosa, dentition normal - Neck Neck: Present: supple, normal ROM - Respiratory Respiratory effort: normal Respiratory: bilateral: CTA - Cardiovascular Rhythm: regular Heart Sounds: Present: S1 & S2. Absent: gallop, rub - Extremities Extremities: no ischemia, No edema, Full ROM - Abdominal General gastrointestinal: soft, non-tender, non-distended, normal bowel sounds - Integumentary Integumentary: Present: clear, warm, dry - Neurologic Neurologic: CNII-XII intact, moves all extremities Results - Labs CBC & Chem 7: 11/14/16 04:17 11/14/16 04:17 Labs: Laboratory Last Values WBC 6.9 K/mm3 (4.5-11.0) 11/14/16 04:17 RBC 3.11 M/mm3 (3.65-5.03) L 11/14/16 04:17 Hgb 10.0 gm/dl (10.1-14.3) L 11/14/16 04:17 Hct 30.0 % (30.3-42.9) L 11/14/16 04:17 MCV 96 fl (79-97) 11/14/16 04:17 MCH 32 pg (28-32) 11/14/16 04:17 MCHC 33 % (30-34) 11/14/16 04:17 RDW 14.9 % (13.2-15.2) 11/14/16 04:17 Plt Count 224 K/mm3 (140-440) 11/14/16 04:17 Lymph % (Auto) 26.3 % (13.4-35.0) 11/12/16 23:40 [place] % (Auto) 8.6 % (0.0-7.3) H 11/12/16 23:40 Eos % (Auto) 4.2 % (0.0-4.3) 11/12/16 23:40 Baso % (Auto) 0.6 % (0.0-1.8) 11/12/16 23:40 Lymph # 2.2 K/mm3 (1.2-5.4) 11/12/16 23:40 [place] # 0.7 K/mm3 (0.0-0.8) 11/12/16 23:40 Eos # 0.3 K/mm3 (0.0-0.4) 11/12/16 23:40 Baso # 0.1 K/mm3 (0.0-0.1) 11/12/16 23:40 Seg Neutrophils % 60.3 % (40.0-70.0) 11/12/16 23:40 Seg Neutrophils # 5.0 K/mm3 (1.8-7.7) 11/12/16 23:40 Sodium 142 mmol/L (137-145) 11/14/16 04:17 Potassium 4.4 mmol/L (3.6-5.0) 11/14/16 04:17 Chloride 107.5 mmol/L (98-107) H 11/14/16 04:17 Carbon Dioxide 23 mmol/L (22-30) 11/14/16 04:17 Anion Gap 16 mmol/L 11/14/16 04:17 BUN 8 mg/dL (7-17) 11/14/16 04:17 Creatinine 0.4 mg/dL (0.7-1.2) L 11/14/16 04:17 Estimated GFR > 60 ml/min 11/14/16 04:17 BUN/Creatinine Ratio 20.00 % 11/14/16 04:17 Glucose 83 mg/dL (65-100) 11/14/16 04:17 Calcium 7.6 mg/dL (8.4-10.2) L 11/14/16 04:17 Magnesium 2.00 mg/dL (1.7-2.3) 11/13/16 13:21 Total Bilirubin 0.20 mg/dL (0.1-1.2) 11/12/16 23:40 AST 24 units/L (5-40) 11/12/16 23:40 ALT 9 units/L (7-56) 11/12/16 23:40 Alkaline Phosphatase 89 units/L (35-129) 11/12/16 23:40 Total Creatine Kinase 66 units/L (30-135) 11/13/16 13:21 CK-MB (CK-2) 4.3 ng/mL (0.0-4.0) H 11/13/16 13:21 CK-MB (CK-2) Rel Index 6.5 (0-4) H 11/13/16 13:21 Troponin T < 0.010 ng/mL (0.00-0.029) 11/13/16 13:21 Total Protein 5.6 g/dL (6.3-8.2) L 11/12/16 23:40 Albumin 2.6 g/dL (3.9-5) L 11/12/16 23:40 Albumin/Globulin Ratio 0.9 % 11/12/16 23:40
[2016-11-14] MEDS: VITAMIN D3 PO SCH (10:25)
[2016-11-14] MEDS: KEPPRA PO SCH ×2 (11:16→22:00)
[2016-11-14] MEDS: PROTONIX PO SCH (11:17)
[2016-11-14] MEDS: NORVASC PO SCH (11:17)
[2016-11-14] MEDS: PROVIGIL PO SCH (12:02)
--- NOTE | 2016-11-14 16:53 | Progress Note ---
Assessment and Plan s/p unwitnessed Fall Hypokalemia Hypomagnesemia Dementia LBBB Recommendations: Obtain prior ECGs to determine chronicity of the left bundle branch block and any prior cardiac workup related to a possible history of paroxysmal atrial fibrillation. Subjective Date of service: 11/14/16 Interval history: Patient is resting in bed comfortably. Objective Vital Signs Temp Pulse Resp Resp BP Pulse Ox 11/14/16 11:17 78 139/43 11/14/16 10:00 98.8 F 66 18 139/43 95 11/14/16 07:20 60 11/14/16 00:19 19 11/13/16 22:00 19 - Physical Examination General: No Apparent Distress Cardiac: Positive: Reg Rate and Rhythm - Labs and Meds CBC 11/14/16 Range/Units 04:17 WBC 6.9 (4.5-11.0) K/mm3 RBC 3.11 L (3.65-5.03) M/mm3 Hgb 10.0 L (10.1-14.3) gm/dl Hct 30.0 L (30.3-42.9) % Plt Count 224 (140-440) K/mm3 Comprehensive Metabolic Panel 11/13/16 11/14/16 Range/Units 17:45 04:17 Sodium 143 142 (137-145) mmol/L Potassium 4.2 D 4.4 (3.6-5.0) mmol/L Chloride 104.8 107.5 H (98-107) mmol/L Carbon Dioxide 28 23 (22-30) mmol/L BUN 7 8 (7-17) mg/dL Creatinine 0.4 L 0.4 L (0.7-1.2) mg/dL Glucose 114 H 83 (65-100) mg/dL Calcium 7.7 L 7.6 L (8.4-10.2) mg/dL
[2016-11-14] MEDS: ZOLOFT PO SCH (22:00)
[2016-11-14] MEDS: ARICEPT PO SCH (22:00)
[2016-11-14] MEDS: REMERON PO SCH (22:00)
[2016-11-15] MEDS: VITAMIN D3 PO SCH (10:02)
[2016-11-15] MEDS: KEPPRA PO SCH (10:02)
[2016-11-15] MEDS: PROTONIX PO SCH (10:02)
[2016-11-15] MEDS: NORVASC PO SCH (10:02)
[2016-11-15] MEDS: PROVIGIL PO SCH (10:03)
--- NOTE | 2016-11-15 12:54 | Progress Note ---
Assessment and Plan s/p unwitnessed Fall Hypokalemia Hypomagnesemia Dementia ECG shows a sinus rhythm with interventricular conduction delay. Conservative cardiac management. Subjective Date of service: 11/15/16 Interval history: Alert with confusion. She denies chest pain and shortness of breath. Objective Vital Signs Temp Pulse Resp BP Pulse Ox 11/15/16 10:02 78 137/88 11/15/16 10:00 71 11/15/16 09:12 98.9 F 78 20 137/88 11/14/16 21:36 98.6 F 74 20 137/59 100 - Physical Examination General: No Apparent Distress HEENT: Positive: PERRL Cardiac: Positive: Reg Rate and Rhythm
--- NOTE | 2016-11-15 20:02 | Progress Note ---
Assessment and Plan Assessment and plan: 81 years old female with advanced dementia, detention resident, admitted for frequent falls Recurrent falls - CT head with no acute abnormalities; PT Severe hypokalemia - repleted, continue to monitor Severe hypomagnesemia - repleted, continue to monitor Acute metabolic encephalopathy - resolved, likely back to baseline, but confused , not oriented due to her advanced dementia LBBB - cardiology consulted and red ECG is sinus rhythm with interventricular conduction delay; no intervention needed DVT prophylaxis - SCD History Interval history: no events overnight Hospitalist Physical - Constitutional Vitals: Temp Pulse Resp BP Pulse Ox 98.9 F 78 20 137/88 100 11/15/16 09:12 11/15/16 10:02 11/15/16 09:12 11/15/16 10:02 11/14/16 21:36 General appearance: Present: no acute distress - EENT Eyes: Present: PERRL, EOM intact - Neck Neck: Present: supple, normal ROM. Absent: masses or JVD - Respiratory Respiratory effort: normal Respiratory: bilateral: CTA, negative: rhonchi, wheezing - Cardiovascular Rhythm: regular Heart Sounds: Present: S1 & S2. Absent: systolic murmur - Extremities Extremities: no ischemia - Abdominal General gastrointestinal: soft, non-tender, non-distended, normal bowel sounds - Psychiatric Psychiatric: cooperative - Neurologic Neurologic: CNII-XII intact, no focal deficits - Additional findings Additional findings: facial ecchymosis Results - Labs CBC & Chem 7: 11/14/16 04:17 11/16/16 04:23 Labs: Laboratory Last Values WBC 6.9 K/mm3 (4.5-11.0) 11/14/16 04:17 RBC 3.11 M/mm3 (3.65-5.03) L 11/14/16 04:17 Hgb 10.0 gm/dl (10.1-14.3) L 11/14/16 04:17 Hct 30.0 % (30.3-42.9) L 11/14/16 04:17 MCV 96 fl (79-97) 11/14/16 04:17 MCH 32 pg (28-32) 11/14/16 04:17 MCHC 33 % (30-34) 11/14/16 04:17 RDW 14.9 % (13.2-15.2) 11/14/16 04:17 Plt Count 224 K/mm3 (140-440) 11/14/16 04:17 Lymph % (Auto) 26.3 % (13.4-35.0) 11/12/16 23:40 [place] % (Auto) 8.6 % (0.0-7.3) H 11/12/16 23:40 Eos % (Auto) 4.2 % (0.0-4.3) 11/12/16 23:40 Baso % (Auto) 0.6 % (0.0-1.8) 11/12/16 23:40 Lymph # 2.2 K/mm3 (1.2-5.4) 11/12/16 23:40 [place] # 0.7 K/mm3 (0.0-0.8) 11/12/16 23:40 Eos # 0.3 K/mm3 (0.0-0.4) 11/12/16 23:40 Baso # 0.1 K/mm3 (0.0-0.1) 11/12/16 23:40 Seg Neutrophils % 60.3 % (40.0-70.0) 11/12/16 23:40 Seg Neutrophils # 5.0 K/mm3 (1.8-7.7) 11/12/16 23:40 Sodium 142 mmol/L (137-145) 11/14/16 04:17 Potassium 4.4 mmol/L (3.6-5.0) 11/14/16 04:17 Chloride 107.5 mmol/L (98-107) H 11/14/16 04:17 Carbon Dioxide 23 mmol/L (22-30) 11/14/16 04:17 Anion Gap 16 mmol/L 11/14/16 04:17 BUN 8 mg/dL (7-17) 11/14/16 04:17 Creatinine 0.4 mg/dL (0.7-1.2) L 11/14/16 04:17 Estimated GFR > 60 ml/min 11/14/16 04:17 BUN/Creatinine Ratio 20.00 % 11/14/16 04:17 Glucose 83 mg/dL (65-100) 11/14/16 04:17 Calcium 7.6 mg/dL (8.4-10.2) L 11/14/16 04:17 Magnesium 2.00 mg/dL (1.7-2.3) 11/13/16 13:21 Total Bilirubin 0.20 mg/dL (0.1-1.2) 11/12/16 23:40 AST 24 units/L (5-40) 11/12/16 23:40 ALT 9 units/L (7-56) 11/12/16 23:40 Alkaline Phosphatase 89 units/L (35-129) 11/12/16 23:40 Total Creatine Kinase 66 units/L (30-135) 11/13/16 13:21 CK-MB (CK-2) 4.3 ng/mL (0.0-4.0) H 11/13/16 13:21 CK-MB (CK-2) Rel Index 6.5 (0-4) H 11/13/16 13:21 Troponin T < 0.010 ng/mL (0.00-0.029) 11/13/16 13:21 Total Protein 5.6 g/dL (6.3-8.2) L 11/12/16 23:40 Albumin 2.6 g/dL (3.9-5) L 11/12/16 23:40 Albumin/Globulin Ratio 0.9 % 11/12/16 23:40
[2016-11-16] MEDS: SYNTHROID PO SCH ×2 (00:14→07:10)
[2016-11-16] MEDS: REMERON PO SCH (00:14)
[2016-11-16] MEDS: KEPPRA PO SCH ×2 (00:14→10:22)
[2016-11-16] MEDS: ARICEPT PO SCH (00:15)
[2016-11-16] MEDS: ZOLOFT PO SCH (00:15)
[2016-11-16 05:56] LABS: Anion Gap 17 mmol/L; Blood Urea Nitrogen 6 mg/dL (7-17); Calcium 8.8 mg/dL (8.4-10.2); Carbon Dioxide 24 mmol/L (22-30); Chloride 106.6 mmol/L (98-107); Glucose 92 mg/dL (65-100); Sodium 144 mmol/L (137-145)
[2016-11-16 09:39] VITALS: BP 139/63
--- NOTE | 2016-11-16 09:43 | Discharge Summary ---
Providers - Providers Date of Admission: 11/13/16 02:07 Date of discharge: 11/16/16 Attending physician: RAH ROMANO 11/13/16 02:09 Consult to Case Management [CONS] Routine Services Needed at Discharge: Home Health Services Notified:: YES Physical Therapy Evaluation and Treat [CONS] Routine Comment: Reason For Exam: mobility 11/13/16 02:15 Consult to Physician [CONS] Routine Consulting Provider: PRAVEENA BARNEY Reason For Exam: LBBB Place consult to:: ANSWERING SERVICE Notified:: YES Phone number called:: [phone] Was contact made?: Yes If yes, spoke with:: MARY Time called:: 08:30 Comment:: MICKY 11/14/16 12:11 Consult to Wound/ET Nurse [CONS] Urgent Reason For Exam: wound eval Primary care physician: MAIN[employer] DEVELOPER Hospitalization Reason for admission: falls Condition: Fair Pertinent studies: CT head Ct cervical spine Hospital course: 81 years old female with advanced dementia, longterm resident, was admitted for frequent falls. Found to have electrolyte abnormalities which were corrected. Nothing else acute. She will return to longterm and will need supportive care, supervision and fall precautions. Discharge diagnoses: Recurrent falls Severe hypokalemia -resolved Severe hypomagnesemia -resolved Acute metabolic encephalopathy - resolved Advanced dementia LBBB - cardiology consulted and read ECG as sinus rhythm with interventricular conduction delay; no intervention needed Disposition: DC/[facility]-03 [facility] Time spent for discharge: 35 min Core Measure Documentation - Palliative Care Palliative Care/ Comfort Measures: Not Applicable - Core Measures Any of the following diagnoses?: none Exam - Physical Exam Narrative exam: Seen and examined: - Constitutional Vitals: Temp Pulse Resp BP Pulse Ox 98.5 F 90 18 139/63 100 11/16/16 09:38 11/16/16 09:38 11/16/16 09:38 11/16/16 09:38 11/14/16 21:36 General appearance: Present: no acute distress - EENT Eyes: Present: PERRL, EOM intact - Neck Neck: Present: supple, normal ROM. Absent: masses or JVD - Respiratory Respiratory effort: normal Respiratory: bilateral: CTA, negative: rhonchi, wheezing - Cardiovascular Rhythm: regular Heart Sounds: Present: S1 & S2. Absent: systolic murmur - Extremities Extremities: no ischemia - Abdominal General gastrointestinal: Present: soft, non-tender, non-distended, normal bowel sounds - Psychiatric Psychiatric: appropriate mood/affect, no intact judgment & insight, no memory intact - Neurologic Neurologic: no focal deficits - Additional findings Additional findings: Facial ecchymoses Plan Activity: advance as tolerated, fall precautions Diet: regular Follow up with: PRIMARY CARE, [Primary Care Provider] - 3-5 Days
[2016-11-16] MEDS: PROTONIX PO SCH (10:22)
[2016-11-16] MEDS: NORVASC PO SCH (10:22)
[2016-11-16] MEDS: VITAMIN D3 PO SCH (10:22)
[2016-11-16] MEDS: PROVIGIL PO SCH (10:23)
--- NOTE | 2016-11-16 12:18 | Query- Nutrition ---
Sharan Ying Date:__11/16/2016 Guide Domestic Tour/CDS:___Rhoda Phone#:____[phone] Exercise your independent professional judgment when responding to query. Questions asked do not imply a particular answer is desired or expected. We greatly appreciate your clarification on this issue. Clinical Documentation States: 81 Year old female was admitted on 11/12/2016 after mechanical fall. The Hospitalist note on 11/15/2016 states "Recurrent falls. Acute metabolic encephalopathy." Clinical Findings Show: Total Protein: 5.6 Albumin: 2.6 Please select the most appropriate option 3 [] Mild Malnutrition [] Mild - Moderate Malnutrition [x] Moderate - Severe Malnutrition [] Severe Malnutrition Serum Albumin 2.8 to 3.4 g/dl or Pre-albumin 5 to 17 mg/dl1,2 Inadequate nutritional intake1,2,3,4 NPO > 5 days Weight loss: 5% in 1 month or 7.5% in 3 months or 10% in 6 months1, 3,4 BMI 16 to 18.4 or Weight <90% of ideal body weight1,2,3,4 Serum Albumin < 2.8 g/ dl1,2 Lymphocytes < 1500/ L2 Inadequate nutritional intake3, high stress e.g. major trauma, sepsis,pancreatitis, judge etc. Decubitus ulcers1,2, , skin breakdown2, easy hair pluckability2 Weight <80% standard for height2 Triceps skin fold <3 mm2 Mid-arm muscle circumference <15 cm2 Creatinine-height index <60% standard2 [ ] Cachexia [ ] Emaciated w/Malnutrition [ ] Other: [ ] Unable to determine [ ] Comment/Explanation: Present on Admission: [x ] Yes (Y) [ ] Clinically undeterminable (W) [ ] No (N) Please also document response in your Progress Notes and/or Discharge Summary and indicate if the condition was present on admission. MTDD
== END 2016-11-16 12:30 | DRG 640 ==
LOC: ED 21:30 → CC2 11-13 02:07
PROVIDERS: ADMIT Internal Medicine; ATTEND Internal Medicine
DX: E87.6 Hypokalemia (principal); G93.41 Metabolic encephalopathy; E43 Unspecified severe protein-calorie malnutrition; E83.42 Hypomagnesemia; F03.90 Unspecified dementia, unspecified severity, without behavioral disturbance, psychotic disturbance, mood disturbance, and anxiety; I10 Essential (primary) hypertension; K21.9 Gastro-esophageal reflux disease without esophagitis; M19.90 Unspecified osteoarthritis, unspecified site; I48.91 Unspecified atrial fibrillation; I44.7 Left bundle-branch block, unspecified; E03.9 Hypothyroidism, unspecified; G40.909 Epilepsy, unspecified, not intractable, without status epilepticus; F32.9 Major depressive disorder, single episode, unspecified; W18.39XA Other fall on same level, initial encounter; Z88.0 Allergy status to penicillin; Z88.6 Allergy status to analgesic agent; Z88.8 Allergy status to other drugs, medicaments and biological substances; Z68.21 Body mass index [BMI] 21.0-21.9, adult; Y93.89 Activity, other specified; Y92.89 Other specified places as the place of occurrence of the external cause; Y99.8 Other external cause status
CPT/HCPCS: 36415; 70450; 71010; 72125; 80048; 80053; 81001; 82550; 82553; 83735; 84484; 85025; 85027; 87086; 93005; 93010; A9270-GY; G8978-GP; G8979-GP; J3475; J3480; J7040